=== PATIENT | female | born 1945 | race Caucasian/White ===

== ENCOUNTER 2016-10-19 06:57 | Inpatient (IN) ==
--- NOTE | 2016-10-19 07:08 | Emergency Department Note ---
Disposition Clinical Impression: Altered mental status Qualifiers: Altered mental status type: disorientation Qualified Code(s): R41.0 - Disorientation, unspecified Fever Qualifiers: Fever type: unspecified Qualified Code(s): R50.9 - Fever, unspecified Disposition: Admitted As Inpatient Condition: Fair Referrals: Hakeem Petersen MD [Primary Care Provider] - Forms: ED Satisfaction Letter Time of Disposition: 08:13 Altered Mental Status HPI - General Chief Complaint: ED Altered Mental Status Stated Complaint: AMS/LKW 0300 Time Seen by Provider: 10/19/16 07:00 Source: EMS, other Mode of arrival: EMS Limitations: altered mental status (senior living) Nursing Notes Reviewed: Yes Vital Signs Reviewed: Yes - History of Present Illness HPI Narrative: 71-year-old female sent from jail be evaluated for change in mental status. Apparently the patient is normally ambulatory, and verbal. She was last seen up going to the bathroom around 3 AM. She was found early this morning confused, minimally verbal, with a fever. On arrival here she is awake and alert, spontaneous eye opening, she will verbalize in single word responses. She is oriented to person, not to place or time. She has no specific complaints. She is febrile. 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 (Last known to be normal around 3 AM) Timing confirmed by: caregiver (senior living) Consistency of Symptoms: unknown Context: unknown Treatments prior to arrival: other (None) - Related Data Home Medications Medication Instructions Recorded Confirmed Letrozole [Femara] 2.5 mg PO DAILY 12/22/14 10/19/16 Pravastatin Sodium [Pravachol] 20 mg PO QPM 12/22/14 10/19/16 levETIRAcetam [Keppra] 625 mg PO BID 12/22/14 10/19/16 DULoxetine [Cymbalta] 40 mg PO QAM 01/25/15 10/19/16 Ferrous Sulfate 325 mg PO BID 01/25/15 10/19/16 Calcium Polycarbophil [Fibercon] 625 mg PO DAILY 06/02/15 10/19/16 Metformin HCl [Fortamet] 500 mg PO QPM 06/02/15 10/19/16 SitaGLIPtin [Januvia] 100 mg PO QAM 06/02/15 10/19/16 Ranitidine HCl [Heartburn Relief] 150 mg PO BID 09/28/15 10/19/16 Aspirin Enteric Coated [Aspirin EC] 81 mg PO DAILY 06/20/16 10/19/16 Docusate [Colace] 100 mg PO BID 06/20/16 10/19/16 Metoprolol [Lopressor] 25 mg PO BID 06/20/16 10/19/16 Mv-Mn/FA/Vit K/Lycop/Lut/Coq10 1 each PO DAILY 06/20/16 10/19/16 [Daily Multivitamin Capsule] Sennosides/Docusate Sodium [Senna 1 each PO BID 06/20/16 10/19/16 Plus] Gabapentin [Neurontin] 100 mg PO BID 09/21/16 10/19/16 Insulin Glargine [Lantus] 5 unit SQ BID 10/19/16 10/19/16 Insulin LISPRO [HumaLOG] 0 units SQ TIDWM 10/19/16 10/19/16 Previous Rx's Medication Instructions Recorded Clopidogrel [Plavix] 1 tab PO Q48H #15 tablet 11/02/15 Hydrocodone/Acetaminophen [[place] 1 tab PO TID PRN #6 tab 12/04/15 5-325 Tablet] Magnesium Oxide [Mag-Ox] 400 mg PO DAILY 10 Days 03/31/16 Folic Acid 1 mg PO DAILY #30 tablet 10/03/16 Allergies Allergy/AdvReac Type Severity Reaction Status Date / Time iron Allergy Difficulty Verified 12/05/15 05:32 Breathing Limitations: ROS unobtainable due to patients medical condition Past Medical History - Past Medical History Medical history: Reports: cancer, coronary artery disease, dementia, diabetes, hypertension, seizures Surgical history: Reports: breast surgery Psychiatric history: Reports: no psych history, depression - Social History Smoking Status: Never smoker Smokeless Tobacco Status: No Alcohol use: Reports: none Drug use: Reports: none Physical Exam - General Limitations: altered mental status General appearance: alert, in no apparent distress - Head Head exam: atraumatic, normocephalic - Eye Eye exam: Present: PERRL, EOMI. Absent: scleral icterus, conjunctival injection - ENT ENT exam: normal oropharynx, mucous membranes moist, TM's normal bilaterally - Neck Neck exam: Present: normal inspection, full ROM, trachea midline. Absent: tenderness, lymphadenopathy - Respiratory Respiratory exam: Present: normal lung sounds bilaterally. Absent: respiratory distress, wheezes - Cardiovascular Cardiovascular exam: Present: normal rhythm, tachycardia. Absent: systolic murmur, rubs, gallop - Abdominal Exam Abdominal exam: Present: soft, Non-Tender. Absent: organomegaly, mass - Extremities Exam Extremities exam: Present: normal inspection, full ROM, normal capillary refill - Back Exam Back exam: Absent: CVA tenderness (R), CVA tenderness (L) - Neurological Exam Neurological exam: Present: alert. Absent: oriented X3 (Oriented to person only not to place or time. Spontaneous eye opening. Spontaneous movement of extremities.), motor sensory deficit - Psychiatric Psychiatric exam: Present: flat affect - Skin Skin exam: Present: warm, dry, intact, normal color. Absent: rash, cyanosis, erythema, pallor Course - Reevaluation(s) Reevaluation #1: Patient is now more alert and talking more. She is still confused. She has no specific complaints. Time: 08:03 Reevaluation #2: Discussed with Dr. Pereira. He has accepted the patient for observation admission. Time: 08:11 Vital Signs Temperature 101.0 F H 10/19/16 07:00 Pulse Rate 111 10/19/16 07:00 Respiratory Rate 18 10/19/16 07:00 Blood Pressure 84/52 10/19/16 07:00 O2 Sat by Pulse Oximetry 93 10/19/16 07:00 Temperature 99.6 F 10/19/16 08:00 Pulse Rate 101 10/19/16 08:00 Respiratory Rate 18 10/19/16 08:00 Blood Pressure 91/49 10/19/16 08:00 O2 Sat by Pulse Oximetry 99 10/19/16 08:00 Oxygen Delivery Oxygen Delivery Room Air Altered Mental Status - [facility] Narrative Medical decision making narrative: Differential includes but is not limited to sepsis, seizure, subarachnoid hemorrhage, meningitis, encephalitis, dehydration, hyperglycemia, hypoglycemia. The patient has altered mental status with a low-grade fever. She has a mildly elevated lactic acid. I cannot rule out sepsis. There is no definite source at this time. Her mental status is already improving with decreasing her temperature and hydration. She was empirically given vancomycin and Rocephin. - Lab Data Lab results reviewed: Yes I reviewed the patient's lab results. Result diagrams: 10/19/16 07:16 10/19/16 07:16 Lab Results 10/19/16 10/19/16 10/19/16 Range/Units 07:16 07:16 07:16 WBC 9.6 (4.3-11.1) K/mcL RBC 3.35 L (3.82-4.97) M/mcL Hgb 9.3 L (11.5-15.4) g/dL Hct 29.9 L (35.3-44.9) % MCV 89.3 (83.0-100.0) fL MCH 27.8 L (28.0-33.3) pg MCHC 31.1 L (31.6-35.5) g/dL RDW 14.9 H (11.5-14.5) % Plt Count 231 (140-400) K/mcL MPV 11.2 (9.4-12.4) fL Immature Gran % 0.3 (0-4) % Seg Neutrophils % 94.4 % Lymphocytes % 2.6 % Monocytes % 2.2 % Eosinophils % 0.3 % Basophils % 0.2 % Neutrophils # 9.0 H (1.6-8.9) K/mcL Lymphocytes # 0.3 L (0.6-4.6) K/mcL Monocytes # 0.2 (0.0-1.3) K/mcL Eosinophils # 0.0 (0.0-0.6) K/mcL Basophils # 0.0 (0.0-0.2) K/mcL VBG Lactic Acid 3.0 H (0.5-2.2) mmol/L Sodium 139 (136-145) mEq/L Potassium 4.3 (3.5-4.5) mEq/L Chloride 104 (98-109) mEq/L Carbon Dioxide 20 (19-29) mEq/L BUN 31 H (7-20) mg/dL Creatinine 1.35 H (0.57-1.11) mg/dL Est GFR ( Amer) 47 L (> 60) Est GFR (Non-Af Amer) 38 L (> 60) BUN/Creatinine Ratio 23 (6-26) Glucose 245 H (70-99) mg/dL Calculated Osmolality 303 H (280-300) Calcium 9.2 (8.6-10.8) mg/dL Total Bilirubin 0.2 (0.2-1.2) mg/dL AST 12 (5-34) Units/L ALT 11 (0-55) Units/L Alkaline Phosphatase 77 (38-126) Units/L Serum Total Protein 6.6 (6.0-8.3) g/dL Albumin 2.9 L (3.5-5.0) g/dL Globulin 3.7 H (2.4-3.5) g/dL Albumin/Globulin Ratio 0.8 L (1.1-2.2) Urine Color (Yellow) Urine Clarity (Clear) Urine pH (5.0-8.0) pH Units Ur Specific [place] (1.010-1.025) Urine Protein (Neg-Trace) mg/dL Urine Glucose (UA) (Normal) mg/dL Urine Ketones (Negative) mg/dL Urine Blood (Negative) Urine Nitrite (Negative) Urine Bilirubin (Negative) Urine Urobilinogen (Normal) mg/dL Ur Leukocyte Esterase (Negative) 10/19/16 Range/Units 07:58 WBC (4.3-11.1) K/mcL RBC (3.82-4.97) M/mcL Hgb (11.5-15.4) g/dL Hct (35.3-44.9) % MCV (83.0-100.0) fL MCH (28.0-33.3) pg MCHC (31.6-35.5) g/dL RDW (11.5-14.5) % Plt Count (140-400) K/mcL MPV (9.4-12.4) fL Immature Gran % (0-4) % Seg Neutrophils % % Lymphocytes % % Monocytes % % Eosinophils % % Basophils % % Neutrophils # (1.6-8.9) K/mcL Lymphocytes # (0.6-4.6) K/mcL Monocytes # (0.0-1.3) K/mcL Eosinophils # (0.0-0.6) K/mcL Basophils # (0.0-0.2) K/mcL VBG Lactic Acid (0.5-2.2) mmol/L Sodium (136-145) mEq/L Potassium (3.5-4.5) mEq/L Chloride (98-109) mEq/L Carbon Dioxide (19-29) mEq/L BUN (7-20) mg/dL Creatinine (0.57-1.11) mg/dL Est GFR ( Amer) (> 60) Est GFR (Non-Af Amer) (> 60) BUN/Creatinine Ratio (6-26) Glucose (70-99) mg/dL Calculated Osmolality (280-300) Calcium (8.6-10.8) mg/dL Total Bilirubin (0.2-1.2) mg/dL AST (5-34) Units/L ALT (0-55) Units/L Alkaline Phosphatase (38-126) Units/L Serum Total Protein (6.0-8.3) g/dL Albumin (3.5-5.0) g/dL Globulin (2.4-3.5) g/dL Albumin/Globulin Ratio (1.1-2.2) Urine Color Yellow (Yellow) Urine Clarity Clear (Clear) Urine pH 5.0 (5.0-8.0) pH Units Ur Specific [place] 1.020 (1.010-1.025) Urine Protein Negative (Neg-Trace) mg/dL Urine Glucose (UA) Normal (Normal) mg/dL Urine Ketones Negative (Negative) mg/dL Urine Blood Trace-intact H (Negative) Urine Nitrite Negative (Negative) Urine Bilirubin Negative (Negative) Urine Urobilinogen Normal (Normal) mg/dL Ur Leukocyte Esterase Negative (Negative) - Radiology Data Radiology results reviewed: Yes I reviewed the patient's radiology results. ITS Impressions Chest X-Ray 10/19/16 07:06 IMPRESSION: 1. Mild enlargement of the cardiac silhouette, possibly secondary to intrinsic enlargement of the heart or pericardial fluid. 2. Low lung volumes with basilar atelectasis. D/ / Farhan Nash MD / Farhan Nash MD Interpreting Provider: Farhan Nash MD Head CT 10/19/16 07:08 IMPRESSION: 1. No acute intracranial abnormality. 2. Moderate chronic ischemic changes with chronic left pontine infarct. D/ / Sriram Calderón MD / Sriram Calderón MD Interpreting Provider: Sirram Calderón MD - EKG Data EKG attestation: Yes I reviewed and interpreted this EKG. EKG results narrative: Sinus tachycardia, rate of 107, nonspecific ST-T changes. Rhythm strip shows sinus tachycardia with rate 107, P1 157 ms, QRS 106 ms with no other ectopy is interpreted by me. This is compared to tracing dated 04/07/16, which shows an electronic atrial pacemaker with a rate of 96. TPA Checklist - LKW: 3-4.5 hrs Add. Contraindications Patient/family understanding: The patient/family members have been counseled and understood the risk, benefit , and alternatives of treatment.
[2016-10-19 07:27] LABS: Basophils % 0.2 %; Eosinophils % 0.3 %; Hematocrit 29.9 % (35.3-44.9); Hemoglobin 9.3 g/dL (11.5-15.4); Immature Granulocytes % 0.3 % (0-4); Lymphocytes # 0.3 K/mcL (0.6-4.6); Lymphocytes % 2.6 %; Mean Corpuscular HGB Conc 31.1 g/dL (31.6-35.5); Mean Corpuscular Hemoglobin 27.8 pg (28.0-33.3); Mean Corpuscular Volume 89.3 fL (83.0-100.0); Mean Platelet Volume 11.2 fL (9.4-12.4); Monocytes # 0.2 K/mcL (0.0-1.3); Monocytes % 2.2 %; Platelet Count 231 K/mcL (140-400); Red Blood Count 3.35 M/mcL (3.82-4.97); Red Cell Distribution Width 14.9 % (11.5-14.5); Segmented Neutrophils % 94.4 %
[2016-10-19] MEDS ORDERED: 0.9 % Sodium Chloride 500 ML IVC ONE ×2 (07:42→09:06)
[2016-10-19] MEDS ORDERED: Vancomycin 1,000 MG in D5% in Water 250 ML IVPB ONE (07:45)
[2016-10-19 07:47] LABS: Albumin 2.9 g/dL (3.5-5.0); Albumin/Globulin Ratio 0.8 (1.1-2.2); Bilirubin,Total 0.2 mg/dL (0.2-1.2); Calcium 9.2 mg/dL (8.6-10.8); Globulin 3.7 g/dL (2.4-3.5); Potassium 4.3 mEq/L (3.5-4.5); Total Protein 6.6 g/dL (6.0-8.3)
[2016-10-19] MEDS: 0.9 % Sodium Chloride 1,000 ML IVC SCH ×2 (07:52)
[2016-10-19 08:01] LABS: Bilirubin,Urine Negative (Negative); Blood,Urine Trace-intact (Negative); Clarity,Urine Clear (Clear); Color,Urine Yellow (Yellow); Glucose,Urine (UA) Normal (Normal); Ketones,Urine Negative (Negative); Leukocyte Esterase,Urine Negative (Negative); Nitrite,Urine Negative (Negative); Protein,Urine Negative (Neg-Trace); Urobilinogen,Urine Normal (Normal)
[2016-10-19 08:17] LABS: RBC,Urine 0-3 per hpf (0-3); Squamous Epithelial Cell,Urine Few per lpf (None-Few); WBC,Urine 0-3 per hpf (0-3)
[2016-10-19] MEDS ORDERED: Naloxone 0.4 MG/ML INJ IVP PRN (09:06)
[2016-10-19] MEDS ORDERED: Magnesium Oxide 400 MG TABLET PO SCH (09:06)
[2016-10-19] MEDS ORDERED: Acetaminophen 325 MG TABLET PO PRN ×2 (09:06→21:07)
[2016-10-19] MEDS ORDERED: *HR* SitaGLIPtin 25 MG TABLET PO SCH (09:06)
[2016-10-19] MEDS ORDERED: 0.9 % Sodium Chloride 1,000 ML IVC SCH ×3 (09:06)
[2016-10-19] MEDS ORDERED: Multivit/Ca/Min/Fe/FA 1 TAB TABLET PO SCH (09:06)
[2016-10-19] MEDS ORDERED: INSULIN GLARGINE 5 UNIT SQ SCH (09:06)
[2016-10-19] MEDS ORDERED: Folic Acid 1 MG TABLET PO SCH (09:06)
[2016-10-19] MEDS ORDERED: Letrozole 2.5 MG TABLET PO SCH (09:06)
[2016-10-19] MEDS ORDERED: Aspirin Enteric Coated 81 MG Tablet PO SCH (09:06)
[2016-10-19] MEDS ORDERED: Vancomycin 1,750 MG in D5% in Water 250 ML IVPB SCH (09:06)
--- NOTE | 2016-10-19 09:54 | Internal Med History&Physical ---
Date of Encounter: 10/19/16 Time of Encounter: 09:30 Assessment and Plan (1) Altered mental status Current visit: Yes Status: Acute Differential diagnosis includes infection, medication, and postictal state. Head CT did not show acute pathology. She does not have meningeal signs or focal deficits. We will continue with IV fluids and antibiotics Qualifiers: Altered mental status type: somnolence Qualified Code(s): R40.0 - Somnolence (2) Fever Current visit: Yes Status: Acute Suspect viral infection. We will continue with antibiotics however and recheck labs in a.m. Qualifiers: Fever type: unspecified Qualified Code(s): R50.9 - Fever, unspecified (3) CKD (chronic kidney disease) stage 3, GFR 30-59 ml/min Current visit: No Status: Chronic We will monitor renal indices. (4) Breast CA Current visit: No Status: Acute Continue Femara Qualifiers: Breast location: upper outer quadrant of breast Laterality: right Qualified Code(s): C50.411 - Malignant neoplasm of upper-outer quadrant of right female breast (5) Anemia Current visit: No Status: Chronic We will order anemia testing in a.m. Qualifiers: Anemia type: iron deficiency Iron deficiency anemia type: chronic blood loss Qualified Code(s): D50.0 - Iron deficiency anemia secondary to blood loss (chronic) (6) HTN (hypertension) Current visit: No Status: Chronic Continue Lopressor and monitor blood pressure. 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 Osborne is a 71 year old female who was brought to emergency room from the care home after staff reported change in mental status. The emergency room note states she was seen going to the bathroom approximately 0300 today. Later she was found to be confused, minimally verbal, and having a fever. She was evaluated in the emergency room and admitted to [facility] for ongoing care needs. She does not respond verbally to voice or light touch. She was hospitalized last at [facility] March 2016 with similar presenting symptoms. At that time however she could talk but stated she felt "confused". She had resolution of symptoms within 48 hours. It was felt she had a viral infection. Past Med Surg Social Fam HX - Past Medical History Medical history: cancer, coronary artery disease, dementia, diabetes, hypertension, seizures Psychiatric history: no psych history, depression - Past Surgical History Surgical History: breast surgery - Social History Smoking Status: Never smoker Smokeless Tobacco Status: No Alcohol use: none Drug use: none Internal Medicine - H&P: Meds Letrozole [Femara] 2.5 mg PO DAILY 12/22/14 [History] Pravastatin Sodium [Pravachol] 20 mg PO QPM 12/22/14 [History] levETIRAcetam [Keppra] 625 mg PO BID 12/22/14 [History] DULoxetine [Cymbalta] 40 mg PO QAM 01/25/15 [History] Ferrous Sulfate 325 mg PO BID 01/25/15 [History] Calcium Polycarbophil [Fibercon] 625 mg PO DAILY 06/02/15 [History] Metformin HCl [Fortamet] 500 mg PO QPM 06/02/15 [History] SitaGLIPtin [Januvia] 100 mg PO QAM 06/02/15 [History] Ranitidine HCl [Heartburn Relief] 150 mg PO BID 09/28/15 [History] Clopidogrel [Plavix] 1 tab PO Q48H #15 tablet 11/02/15 [Rx] Hydrocodone/Acetaminophen [[place] 5-325 Tablet] 1 tab PO TID PRN #6 tab 12/04/15 [Rx] Magnesium Oxide [Mag-Ox] 400 mg PO DAILY 10 Days 03/31/16 [Rx] Aspirin Enteric Coated [Aspirin EC] 81 mg PO DAILY 06/20/16 [History] Docusate [Colace] 100 mg PO BID 06/20/16 [History] Metoprolol [Lopressor] 25 mg PO BID 06/20/16 [History] Mv-Mn/FA/Vit K/Lycop/Lut/Coq10 [Daily Multivitamin Capsule] 1 each PO DAILY [History] Sennosides/Docusate Sodium [Senna Plus] 1 each PO BID 06/20/16 [History] Gabapentin [Neurontin] 100 mg PO BID 09/21/16 [History] Folic Acid 1 mg PO DAILY #30 tablet 10/03/16 [Rx] Insulin Glargine [Lantus] 5 unit SQ BID 10/19/16 [History] Insulin LISPRO [HumaLOG] 0 units SQ TIDWM 10/19/16 [History] Allergies iron Allergy (Verified 12/05/15 05:32) Difficulty Breathing IV iron, pt able to take PO iron without difficulty All Systems PM: A 10-system review of systems was performed and is negative for pertinent findings except as documented above in the HPI. Review of systems: Review of systems from the March 2016 hospitalization were reviewed and revised as below. Gen.: Her weight has been stable at approximately 97 kg since March 2016 hospitalization. Cardiovascular: She has history of hypertension. She has chronic atrial fibrillation but is on daily aspirin and q.o.d. Plavix rather than OAC for CVA prophylaxis. (She did use Coumadin in the past but had bleeding so this was discontinued). She had a dual-chamber pacemaker placed in the past. She has not had DVT or pulmonary embolus. She has ASPVD and had popliteal, anterior tibial, and posterior tibial artery endarterectomy with bovine pericardial patch angioplasty in the past. She had left distal superficial femoral, popliteal, and tibial thrombectomy in the past. She had EST November 2013 which did not show ischemia. She had echocardiogram July 2013 which showed LVEF of 60% with no significant valvular abnormalities. She had carotid Doppler studies 05/15/2016 which showed right ICA with 40-59% stenosis and left ICA was 60-79% stenosis. Respiratory: She smoked from age [age] never exceeding 1 pack per day. She has a diagnosis of emphysema. GI: She denies disorders of her liver gallbladder or exocrine pancreas. She had EGD and colonoscopy 08/27/2014 at [facility] which showed GERD, gastritis, and angiodysplasia of the second portion of the duodenum which was cauterized. Colonoscopy showed 3 polyps which were resected from the rectosigmoid region. : She had bladder CA 2007 with transurethral resection of bladder tumor. She had repeat cystoscopy 2014 which did not show significant abnormalities. She has CKD stage III. Neurologic: She has chronic ischemic microvascular changes and chronic left pontine infarct seen on head CT in the emergency room. She has history of absence seizures. Endocrine: She was diagnosed with DM 2 approximately 2007. She has hyperlipidemia but no known thyroid disease Hematology/oncology: She had bladder cancer as mentioned. She had right breast CA diagnosed November 2013 with biopsy December 2013. She had a lumpectomy and underwent XRT and is now on aromatase therapy to complete a 5 year course. She has elevated serum light chains on SPEP December 2015. She follows with Dr. Fonseca at [facility]. She has a history of anemia. Psychiatric: She has history of depression but no anxiety or other mental health issues Musk skeletal: She has DJD but no known gout or osteoporosis. - Constitutional Vitals: Temp Pulse Resp BP Pulse Ox 99.3 F 98 20 129/68 96 10/19/16 09:40 10/19/16 09:40 10/19/16 09:40 10/19/16 09:40 10/19/16 09:40 Exam: Gen.: She is a well-developed overweight female lying in bed who appears in no acute distress HEENT: Head is atraumatic and normocephalic. Eyes: EOMI. There is no scleral icterus. Mouth: She does not open her mouth well for examination. Her mucosa appears to be moist. Neck: She does not have meningeal signs on neck flexion. There is no thyromegaly or adenopathy noted. Heart: Regular (status post pacer) at rate approximately 108/m. No murmurs or gallops are heard. Lungs: No wheezes or crackles are heard. Abdomen: Soft and nontender. No masses or guarding are noted. Extremities: There is no cyanosis edema or clubbing noted. Dorsalis pedis and posttibial pulses are 1-2 over 2 bilaterally. Neurologic: Mental status: She is nonverbal. She does not follow commands. Cranial nerves: She has minimal facial movement spontaneously. Her gaze appears to be conjugate. There appears to be EOMI from random observation. Motor: She has equal arm tone on passive range of motion. She withdraws her legs symmetrically to Babinski testing with downgoing toes bilaterally. No further neurologic testing is attempted. Skin: Warm and dry Internal Med - H&P Results - Labs CBC & Chem 7: 10/19/16 07:16 10/19/16 07:16
[2016-10-19] MEDS: Famotidine 20 MG TABLET PO SCH ×2 (11:02→21:06)
[2016-10-19] MEDS: levETIRAcetam 250 MG TABLET PO SCH ×2 (11:02→19:11)
[2016-10-19] MEDS: Sennosides/Docusate Sodium TABLET PO SCH ×2 (11:02→19:22)
[2016-10-19] MEDS: Gabapentin 100 MG CAPSULE PO SCH ×2 (11:02→21:06)
[2016-10-19] MEDS: Insulin DETEMIR 100 UNIT/ML X5UNITS SQ SCH ×2 (11:03→21:26)
[2016-10-19] MEDS: *HR* Enoxaparin 40 MG/0.4 ML SYRINGE SQ SCH (14:17)
--- NOTE | 2016-10-19 15:09 | Electrocardiograph Report ---
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
[2016-10-19 16:18] LABS: ABG Base Excess -2.3 mEq/L (-2.0 to 3.0); ABG HCO3 22.1 mEQ/L (21-27); ABG PCO2 34 mmHg (35-45); ABG PH 7.43 pH Units (7.32-7.45); ABG PO2 92 mmHg (85-104); ABG TCO2 23.1 mEq/L (20-26)
[2016-10-19 16:19] LABS: ABG Oxygen Saturation 97 % (95-98)
[2016-10-19 16:20] LABS: Blood Gas FiO2 28 %; Blood Gas Liter Flow 2 L/MIN
[2016-10-19] MEDS: *HR* Metformin 500 MG TABLET PO SCH ×2 (17:38→19:22)
[2016-10-19] MEDS: Divalproex (12 HR) 250 MG TABLET PO SCH ×2 (19:13→21:05)
[2016-10-19] MEDS ORDERED: Miconazole 2% cream 118 GM TUBE TP SCH (21:00)
[2016-10-20 05:50] LABS: Basophils % 0.4 %; Eosinophils # 0.2 K/mcL (0.0-0.6); Eosinophils % 3.1 %; Hematocrit 24.1 % (35.3-44.9); Hemoglobin 7.8 g/dL (11.5-15.4); Immature Granulocytes % 0.4 % (0-4); Lymphocytes # 0.4 K/mcL (0.6-4.6); Lymphocytes % 8.8 %; Mean Corpuscular HGB Conc 32.4 g/dL (31.6-35.5); Mean Corpuscular Hemoglobin 27.8 pg (28.0-33.3); Mean Corpuscular Volume 85.8 fL (83.0-100.0); Mean Platelet Volume 11.6 fL (9.4-12.4); Monocytes # 0.4 K/mcL (0.0-1.3); Monocytes % 7.2 %; Neutrophils # 3.9 K/mcL (1.6-8.9); Platelet Count 187 K/mcL (140-400); Red Blood Count 2.81 M/mcL (3.82-4.97); Red Cell Distribution Width 14.7 % (11.5-14.5); Segmented Neutrophils % 80.1 %
[2016-10-20 06:05] LABS: Alanine Aminotransferase 10 Units/L (0-55); Albumin 2.5 g/dL (3.5-5.0); Albumin/Globulin Ratio 0.8 (1.1-2.2); Alkaline Phosphatase 64 Units/L (38-126); Aspartate Amino Transferase 15 Units/L (5-34); BUN/Creatinine Ratio 23 (6-26); Bilirubin,Total 0.2 mg/dL (0.2-1.2); Blood Urea Nitrogen 20 mg/dL (7-20); Calcium 8.1 mg/dL (8.6-10.8); Carbon Dioxide 21 mEq/L (19-29); Chloride 109 mEq/L (98-109); Globulin 3.3 g/dL (2.4-3.5); Glucose 127 mg/dL (70-99); Osmolality,Calculated 296 (280-300); Potassium 3.4 mEq/L (3.5-4.5); Sodium 141 mEq/L (136-145); Total Protein 5.8 g/dL (6.0-8.3); eGFR For African Americans > 60 (> 60); eGFR For Non-African Americans > 60 (> 60)
[2016-10-20] MEDS: *HR* Enoxaparin 40 MG/0.4 ML SYRINGE SQ SCH (06:10)
[2016-10-20 06:47] VITALS: BP 129/74
[2016-10-20] MEDS: 0.9 % Sodium Chloride 1,000 ML IVC SCH ×4 (07:39→07:50)
[2016-10-20] MEDS ORDERED: Vancomycin 1,000 MG in D5% in Water 250 ML IVPB SCH (08:00)
--- NOTE | 2016-10-20 09:57 | Discharge Summary ---
Date of Encounter: 10/20/16 Time of Encounter: 09:15 - Discharge Diagnosis (1) Altered mental status Priority: Primary Status: Acute Qualifiers: Altered mental status type: somnolence Qualified Code(s): R40.0 - Somnolence (2) Fever Priority: Secondary Status: Acute Qualifiers: Fever type: unspecified Qualified Code(s): R50.9 - Fever, unspecified (3) CKD (chronic kidney disease) stage 3, GFR 30-59 ml/min Priority: Secondary Status: Chronic (4) Breast CA Priority: Secondary Status: Acute Qualifiers: Breast location: upper outer quadrant of breast Laterality: right Qualified Code(s): C50.411 - Malignant neoplasm of upper-outer quadrant of right female breast (5) Anemia Priority: Secondary Status: Chronic Qualifiers: Anemia type: iron deficiency Iron deficiency anemia type: chronic blood loss Qualified Code(s): D50.0 - Iron deficiency anemia secondary to blood loss (chronic) (6) HTN (hypertension) Priority: Secondary Status: Chronic Qualifiers: Hypertension type: essential hypertension Qualified Code(s): I10 - Essential (primary) hypertension - Discharge Medications Home Medications: Letrozole [Femara] 2.5 mg PO DAILY 12/22/14 [History] Pravastatin Sodium [Pravachol] 20 mg PO QPM 12/22/14 [History] levETIRAcetam [Keppra] 625 mg PO BID 12/22/14 [History] DULoxetine [Cymbalta] 40 mg PO QAM 01/25/15 [History] Ferrous Sulfate 325 mg PO BID 01/25/15 [History] Calcium Polycarbophil [Fibercon] 625 mg PO DAILY 06/02/15 [History] Metformin HCl [Fortamet] 500 mg PO QPM 06/02/15 [History] SitaGLIPtin [Januvia] 100 mg PO QAM 06/02/15 [History] Ranitidine HCl [Heartburn Relief] 150 mg PO BID 09/28/15 [History] Clopidogrel [Plavix] 1 tab PO Q48H #15 tablet 11/02/15 [Rx] Hydrocodone/Acetaminophen [[place] 5-325 Tablet] 1 tab PO TID PRN #6 tab 12/04/15 [Rx] Magnesium Oxide [Mag-Ox] 400 mg PO DAILY 10 Days 11/25/16 [Rx] Aspirin Enteric Coated [Aspirin EC] 81 mg PO DAILY 06/20/16 [History] Docusate [Colace] 100 mg PO BID 06/20/16 [History] Metoprolol [Lopressor] 25 mg PO BID 06/20/16 [History] Mv-Mn/FA/Vit K/Lycop/Lut/Coq10 [Daily Multivitamin Capsule] 1 each PO DAILY [History] Sennosides/Docusate Sodium [Senna Plus] 1 each PO BID 06/20/16 [History] Gabapentin [Neurontin] 100 mg PO BID 09/21/16 [History] Folic Acid 1 mg PO DAILY #30 tablet 10/03/16 [Rx] Insulin Glargine [Lantus] 5 unit SQ BID 10/19/16 [History] Insulin LISPRO [HumaLOG] 0 units SQ TIDWM 10/19/16 [History] Divalproex (12 HR) [Depakote (12 HR)] 250 mg PO BID tablet. 10/20/16 [Rx] Vancomycin [Vancocin] 1,000 mg IVPB Q24H vial 10/20/16 [Rx] cefTRIAXone [Rocephin] 1,000 mg IVPB Q24H vial 10/20/16 [Rx] Allergies/Adverse Reactions: Allergies iron Allergy (Verified 12/05/15 05:32) Difficulty Breathing IV iron, pt able to take PO iron without difficulty Date of admission: 10/19/16 11:48 Primary care physician: Hakeem Petersen MD - Patient Status Disposition: Transfer Other Condition: Fair - Discharge Instructions Hospital course: Ms. Osborne is a 71 year old female who was brought to emergency room from the long-term after staff reported change in mental status. The emergency room note states she was seen going to the bathroom approximately 0300 today. Later she was found to be confused, minimally verbal, and having a fever. She was evaluated in the emergency room and admitted to [facility] for ongoing care needs. Initial orders were written by the emergency room physician. I saw her on October 19 and performed the history and physical. Her mental status waxed and waned over the course of her stay. At time she was unresponsive to voice and light touch while at other times she could answer questions reasonably accurate. A brain MRI was ordered but could not be done because the presence of a pacemaker. 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 Family wished her to be transferred for neurologic evaluation. Arrangements were completed on October 20 for her to go to [facility]. She was started empirically on vancomycin and Rocephin for fever with neutrophilia. She had intermittent low-grade fevers during her hospital stay. There were no meningeal signs seen on examination. Her WBC was normal on the day of transfer at 4.9K with segs improved to 80.1%. IV fluids were given and her azotemia resolved with BUN and creatinine being 20 and 0.8 respectively on October 20. Anemia testing was ordered with results pending at time of transfer. Her blood pressure remained satisfactory during hospitalization. She was transferred to [facility] October 20 for ongoing care needs. - Time Spent with Patient Total time spent providing and/or coordinating discharge services: - Constitutional Vitals: Temp Pulse Resp BP Pulse Ox 99.1 F 93 16 129/74 93 10/20/16 06:44 10/20/16 06:44 10/20/16 06:44 10/20/16 06:44 10/20/16 06:44
[2016-10-20] MEDS ORDERED: 0.45 % Sodium Chloride w/KCl 20 MEQ/1,000 ML MLS IVC SCH (10:00)
[2016-10-20 10:19] LABS: % Iron Saturation 6 % (15-50); Iron 13 mcg/dL (50-170); Transferrin 161 mg/dL (180-382)
[2016-10-20 10:50] LABS: Folate 9.8 ng/mL (7.0-31.4)
[2016-10-20 10:56] LABS: Ferritin 227 ng/ml (5-204)
== END 2016-10-20 10:30 | disposition short-term general hospital (02) | DRG 101 ==
LOC: EMEROOPIK 06:57 → INPPIK 06:57
PROVIDERS: ADMIT Internal Medicine; ATTEND Internal Medicine